=== PATIENT | male | born 1990 | race Caucasian/White ===

== ENCOUNTER 2024-07-28 11:51 | Inpatient (IN) | payer OTHER ==
[2024-07-28] MEDS ORDERED: chlordiazePOXIDE HCL 25 MG CAPSULE PO PRN (12:41)
[2024-07-28] MEDS ORDERED: POLYETHYLENE GLYCOL (HEALTHYLAX) 3350 17 GM PACKET PO PRN (12:41)
[2024-07-28] MEDS ORDERED: ONDANSETRON *ODT* 4 MG TABLET SL PRN (12:41)
[2024-07-28] MEDS ORDERED: BENZOCAINE/MENTHOL (CHLORASEPTIC ) LOZENGE MM PRN (12:41)
[2024-07-28] MEDS ORDERED: IBUPROFEN 600 MG TABLET (FP) PO PRN (12:41)
[2024-07-28] MEDS ORDERED: BENZONATATE 200 MG CAPSULE PO PRN (12:41)
[2024-07-28] MEDS ORDERED: MAG HYDROX/AL HYDROX/SIMETH 30 ML UNIT-DOSE CUP PO PRN (12:41)
[2024-07-28] MEDS ORDERED: NALOXONE (NARCAN) HCL 4 MG/0.1 ML SPRAY NS PRN (12:41)
[2024-07-28] MEDS ORDERED: ACETAMINOPHEN 325 MG TABLET (FP) PO PRN (12:41)
[2024-07-28] MEDS ORDERED: guaiFENesin 600 MG TABLET.ER (FP) PO PRN (12:41)
[2024-07-28] MEDS ORDERED: DICYCLOMINE HCL 10 MG CAPSULE PO PRN (12:41)
[2024-07-28] MEDS ORDERED: MAGNESIUM HYDROX 2400MG/30ML ORAL SUSPENSION 30 ML CUP PO PRN (12:41)
[2024-07-28] MEDS ORDERED: IBUPROFEN 400 MG TABLET (FP) PO PRN (12:41)
[2024-07-28] MEDS ORDERED: BISMUTH SUBSALICYLATE 524 MG/30 ML PO PRN (12:41)
[2024-07-28] MEDS ORDERED: LOPERAMIDE HCL 2 MG CAPSULE PO PRN (12:41)
[2024-07-28 13:00] VITALS: BMI 22.8
[2024-07-28] MEDS ORDERED: ALBUTEROL SO4 HFA INHALER IH PRN (13:18)
[2024-07-28] MEDS ORDERED: NICOTINE 14 MG/24 HOURS TOPICAL PATCH TD ONE (13:28)
[2024-07-28] MEDS ORDERED: cloNIDine HCL 0.1 MG TABLET ONE (13:28)
[2024-07-28] MEDS ORDERED: PRENATAL VITAMINS W/ FOLIC ACID TABLET (FP) PO ONE (13:28)
[2024-07-28] MEDS ORDERED: chlordiazePOXIDE HCL 25 MG CAPSULE ONE (13:28)
[2024-07-28] MEDS: NICOTINE 14 MG/24 HOURS TOPICAL PATCH TD SCH (13:31)
[2024-07-28] MEDS: PRENATAL VITAMINS W/ FOLIC ACID TABLET (FP) PO SCH (13:31)
[2024-07-28] MEDS: chlordiazePOXIDE HCL 25 MG CAPSULE PO ONE (13:32)
[2024-07-28] MEDS: cloNIDine HCL 0.1 MG TABLET PO ONE (13:32)
[2024-07-28] MEDS: NALTREXONE HCL 50 MG TABLET PO ONE ×2 (14:19→14:55)
[2024-07-28] MEDS: hydrOXYzine PAMOATE 25 MG CAPSULE (FP) PO PRN (14:55)
[2024-07-28] MEDS: chlordiazePOXIDE HCL 25 MG CAPSULE PO SCH (17:37)
[2024-07-28] MEDS: MELATONIN 5 MG TABLETS PO SCH (22:25)
[2024-07-28] MEDS: THIAMINE 100 MG TABLET PO SCH (22:25)
[2024-07-28] MEDS: METHOCARBAMOL 500 MG TABLET PO PRN (22:26)
[2024-07-29] MEDS: NALTREXONE HCL 50 MG TABLET PO SCH (10:05)
[2024-07-29 11:17] LABS: HEMOGLOBIN 16.4 g/dL (13.7-17.5); MCHC 32.2 g/dl (32.3-36.5); MEAN CELL VOLUME 93.9 fl (79.0-92.2); MEAN PLT VOLUME 10.3 fl (9.4-12.4); PLATELET COUNT 280 x10^3/uL (163-337); RDW 13.1 % (12.0-15.6)
[2024-07-29 11:20] LABS: POTASSIUM 4.1 mmol/L (3.5-5.1)
[2024-07-29 11:53] LABS: BLOOD UREA NITROGEN 6.1 mg/dL (7-18)
[2024-07-29 11:54] LABS: ALBUMIN 3.8 g/dl (3.4-5.0)
[2024-07-29 11:56] LABS: CALCIUM 9.4 mg/dL (8.5-10.1)
[2024-07-29 11:57] LABS: CREATININE 0.8 mg/dL (0.55-1.3)
[2024-07-29 11:59] LABS: BILIRUBIN,TOTAL 0.8 mg/dL (0.2-1); TOT PROT 7.1 g/dl (6.4-8.2)
[2024-07-29] MEDS: OLANZapine 10 MG TABLET PO SCH (22:21)
[2024-07-30] MEDS: chlordiazePOXIDE HCL 25 MG CAPSULE PO SCH (05:42)
[2024-07-31] MEDS ORDERED: chlordiazePOXIDE HCL 10 MG CAPSULE PO PRN
[2024-07-31] MEDS: chlordiazePOXIDE HCL 10 MG CAPSULE PO SCH (06:00)
[2024-07-31 11:28] LABS: ABSOLUTE IMMATURE GRANULOCYTES 0.03 x10^3/uL (0.0-0.031); BASOPHILS # 0.06 x10^3/uL (0.01-0.08); EOSINOPHIL % 2.7 % (0.8-7.0); EOSINOPHILS # 0.17 x10^3/uL (0.04-0.54); HEMATOCRIT 50.2 % (40.1-51.0); MCHC 31.9 g/dl (32.3-36.5); MEAN PLT VOLUME 10.2 fl (9.4-12.4); MONOCYTE # 0.72 x10^3/uL (0.30-0.82); MONOCYTE % 11.3 % (5.3-12.2); PLATELET COUNT 273 x10^3/uL (163-337); RDW 12.7 % (12.0-15.6)
[2024-08-01] MEDS: chlordiazePOXIDE HCL 10 MG CAPSULE PO SCH (05:28)
[2024-08-01] MEDS: NICOTINE POLACRILEX 2 MG LOZENGE BC PRN (19:54)
[2024-08-02] MEDS: chlordiazePOXIDE HCL 10 MG CAPSULE PO ONE (05:33)
[2024-08-02 12:44] VITALS: BP 124/88; PULSE 90; RESP 16; TEMP 97.4
== END 2024-08-02 12:48 | disposition home or self-care (01) | DRG 775 ==
LOC: SUATTDRO 11:51 → YASAS 11:51 → Y3N 13:08
PROVIDERS: ADMIT Allergy & Immunology; ATTEND Allergy & Immunology
PROC: HZ2ZZZZ Detoxification Services for Substance Abuse Treatment (ICD-10-PCS; principal; 2024-07-28)
DX: F10.230 Alcohol dependence with withdrawal, uncomplicated (principal); F15.20 Other stimulant dependence, uncomplicated; F12.20 Cannabis dependence, uncomplicated; F17.210 Nicotine dependence, cigarettes, uncomplicated; F20.9 Schizophrenia, unspecified; F32.A Depression, unspecified; F41.9 Anxiety disorder, unspecified; G47.00 Insomnia, unspecified; J45.909 Unspecified asthma, uncomplicated
CPT/HCPCS: 36415; 80053; 80305; 80307; 85025; 85027; 86780; 87811; 93005; 93010

== ENCOUNTER 2024-08-02 12:51 | Inpatient (IN) | payer OTHER ==
[2024-08-02] MEDS ORDERED: NICOTINE POLACRILEX 4 MG GUM BUC PRN (14:31)
[2024-08-02] MEDS ORDERED: POLYETHYLENE GLYCOL (HEALTHYLAX) 3350 17 GM PACKET PO PRN (14:31)
[2024-08-02] MEDS ORDERED: MAGNESIUM HYDROX 2400MG/30ML ORAL SUSPENSION 30 ML CUP PO PRN (14:31)
[2024-08-02] MEDS ORDERED: guaiFENesin 600 MG TABLET.ER (FP) PO PRN (14:31)
[2024-08-02] MEDS ORDERED: LOPERAMIDE HCL 2 MG CAPSULE PO PRN (14:31)
[2024-08-02] MEDS ORDERED: BENZOCAINE/MENTHOL (CHLORASEPTIC ) LOZENGE MM PRN (14:31)
[2024-08-02] MEDS ORDERED: IBUPROFEN 400 MG TABLET (FP) PO PRN (14:31)
[2024-08-02] MEDS ORDERED: IBUPROFEN 600 MG TABLET (FP) PO PRN (14:31)
[2024-08-02] MEDS ORDERED: MAG HYDROX/AL HYDROX/SIMETH 30 ML UNIT-DOSE CUP PO PRN (14:31)
[2024-08-02] MEDS ORDERED: NALOXONE HCL 0.4 MG/ML VIAL IVPUSH PRN (14:31)
[2024-08-02] MEDS ORDERED: NALOXONE (NARCAN) HCL 4 MG/0.1 ML SPRAY NS PRN (14:31)
[2024-08-02] MEDS ORDERED: NICOTINE POLACRILEX 4 MG LOZENGE BC PRN (14:31)
[2024-08-02] MEDS ORDERED: BENZONATATE 200 MG CAPSULE PO PRN (14:31)
[2024-08-02] MEDS ORDERED: ALBUTEROL SO4 HFA INHALER IH PRN (14:35)
[2024-08-02] MEDS: THIAMINE 100 MG TABLET PO SCH (21:30)
[2024-08-02] MEDS: OLANZapine 10 MG TABLET PO SCH (21:30)
[2024-08-02] MEDS: MELATONIN 5 MG TABLETS PO SCH (21:31)
[2024-08-02] MEDS: METHOCARBAMOL 500 MG TABLET PO PRN (23:13)
[2024-08-03] MEDS: PRENATAL VITAMINS W/ FOLIC ACID TABLET (FP) PO SCH (10:10)
[2024-08-03] MEDS: NICOTINE 21 MG/24 HOURS TOPICAL PATCH TD SCH (10:10)
[2024-08-03] MEDS: OLANZapine 10 MG TABLET PO SCH (10:10)
[2024-08-03] MEDS: NALTREXONE HCL 50 MG TABLET PO SCH (10:10)
[2024-08-05] MEDS: hydrOXYzine PAMOATE 25 MG CAPSULE (FP) PO PRN (09:57)
[2024-08-06] MEDS: ACETAMINOPHEN 325 MG TABLET (FP) PO PRN (00:49)
[2024-08-07] MEDS: GABAPENTIN 100 MG CAPSULE PO SCH (14:27)
[2024-08-08 05:42] VITALS: BP 139/87; PULSE 96; RESP 16; TEMP 97.7
[2024-08-08 12:12] LABS: INR 1.11 (0.83-1.09); PROTHROMBIN TIME (PATIENT) 12.1 SEC (9.7-13.0)
[2024-08-08 16:12] LABS: HIV INTERPRETATION NEGATIVE (NEGATIVE)
[2024-08-08 16:16] LABS: HCV DIAGNOSTIC IN-HOUSE W/RFLX NON-REACTIVE (NONREACTIVE)
== END 2024-08-08 13:56 | disposition left against medical advice (07) | DRG 770 ==
LOC: YASAS 12:51 → Y3W 12:53
PROVIDERS: ADMIT Psychiatry & Neurology Pain Medicine; ATTEND Psychiatry & Neurology Pain Medicine
PROC: HZ42ZZZ Group Counseling for Substance Abuse Treatment, Cognitive-Behavioral (ICD-10-PCS; principal; 2024-08-02)
DX: F10.20 Alcohol dependence, uncomplicated (principal); F16.10 Hallucinogen abuse, uncomplicated; F12.20 Cannabis dependence, uncomplicated; F17.210 Nicotine dependence, cigarettes, uncomplicated; F19.282 Other psychoactive substance dependence with psychoactive substance-induced sleep disorder; F19.280 Other psychoactive substance dependence with psychoactive substance-induced anxiety disorder; F20.9 Schizophrenia, unspecified; F41.9 Anxiety disorder, unspecified; F32.A Depression, unspecified; G47.00 Insomnia, unspecified; R45.851 Suicidal ideations; Z59.00 Homelessness unspecified
CPT/HCPCS: 36415; 82140; 82652; 83735; 85610; 86803; 87389; 87491; 87591; 87661